=== PATIENT | male | born 1985 | race Caucasian/White ===

== ENCOUNTER 2016-11-18 09:59 | Emergency (ER) | payer SELFPAY ==
[~2016-11-18] VITALS: Ht 170.2 cm; Wt 86.4 kg
[2016-11-18 11:56] VITALS: BP 140/85
[2016-11-18] MEDS ORDERED: DEXAMETHASONE SOD PHOS 4 MG/ML 5 ML VIAL IM ONE (12:00)
== END 2016-11-18 11:58 | disposition home or self-care (01) ==
LOC: EMS 10:01
DX: L25.9 Unspecified contact dermatitis, unspecified cause (principal); F12.90 Cannabis use, unspecified, uncomplicated
CPT/HCPCS: 96372; 99283; J1100